=== PATIENT | male | born 2000 | race Caucasian/White ===

== ENCOUNTER 2022-05-04 08:08 | Outpatient (CLI) | payer OTHER, BC, SELFPAY ==
--- NOTE | 2022-05-04 08:15 | CRLHL7_ITS ---
For Patients: As a result of the Century Cures Act, medical imaging exams and procedure reports are released immediately into your electronic medical record. You may view this report before your referring provider. If you have questions, please contact your health care provider. INDICATION: Left scrotal swelling COMPARISON: none TECHNIQUE: Meyer scale imaging was performed of the scrotum. In addition color Doppler and spectral Doppler analysis was performed of the testes. FINDINGS: The testes demonstrate normal arterial and venous blood flow on color Doppler and spectral Doppler analysis. The testes have uniform echogenicity with no evidence of a suspicious mass or area of inflammation. The right testis measures 5.0 x 2.1 x 3.9 cm in size and the left testis measures 4.9 x 2.2 x 4.3 cm. Multiple cysts are associated with the left epididymal head measuring up to 4.9 cm total dimension. Numerous septa are present no varicocele. Normal right epididymis. IMPRESSION: Large complex cystic area associated with the left epididymal head measuring up to 4.9 cm in total dimension. Urology consultation suggested. Normal testicles. Dictated by Delmer Ness MD @ 05/04/2022 10:12:47 AM (Electronically Signed)
== END 2022-05-04 08:09 | disposition home or self-care (01) ==
LOC: US 08:09
PROVIDERS: PCP Family Medicine; Visit Provider Family Medicine
DX: N50.89 Other specified disorders of the male genital organs (principal); L72.0 Epidermal cyst
CPT/HCPCS: 76870; 93976

== ENCOUNTER 2022-11-17 08:54 | Outpatient (CLI) | payer OTHER, BC, SELFPAY | END 2022-11-17 08:55 | disposition home or self-care (01) | LOC: NFLDREF 11-18 18:51 | PROVIDERS: PCP Family Medicine; Referring Provider Family Medicine; Visit Provider Nurse Practitioner Family | DX: R35.0 Frequency of micturition (principal); N39.0 Urinary tract infection, site not specified | CPT/HCPCS: 87086 ==